=== PATIENT | male | born 1980 | race African-American/Black ===

== ENCOUNTER 2022-10-12 11:09 | Emergency (ER) | payer OTHER ==
[~2022-10-12] VITALS: Ht 175.3 cm; Wt 82.0 kg
[2022-10-12 11:25] VITALS: O2SAT 100
[2022-10-12 16:56] LABS: INR 1.6; PARTIAL THROMBOPLASTIN TIME 36.2 sec (23.4-31.0); PROTHROMBIN TIME 16.8 sec (9.6-11.0)
[2022-10-12] MEDS ORDERED: WARFARIN SODIUM 7.5MG TABLET PO ONE (17:15)
[2022-10-12] MEDS ORDERED: WARFARIN SODIUM 4MG TABLET PO NR (18:00)
[2022-10-12] MEDS ORDERED: WARF4TAB71 MT (18:17)
[2022-10-12] MEDS ORDERED: WARF7.5T48 MT (18:17)
[2022-10-12 18:33] VITALS: BP 113/64; PULSE 64; RESP 19; TEMP 97.8
== END 2022-10-12 18:35 | disposition home or self-care (01) ==
LOC: ER 11:22
DX: Z76.0 Encounter for issue of repeat prescription (principal)
CPT/HCPCS: 36415; 99283

== ENCOUNTER 2024-01-29 12:06 | Emergency (ER) | payer OTHER ==
[~2024-01-29] VITALS: Ht 175.3 cm; Wt 81.2 kg
[~2024-01-29 12:06] MED LIST: WARF4TAB71 MT; WARF7.5T48 MT
[2024-01-29 12:19] VITALS: BP 112/62; PULSE 88; RESP 16; TEMP 98; O2SAT 98
[2024-01-29 14:01] LABS: BASOPHILS % 0.5 % (0.0-2.0); EOSINOPHILS % 1.3 % (0.0-5.0); HEMATOCRIT. 48.1 % (42.0-52.0); HEMOGLOBIN. 15.9 g/dL (14.0-18.0); LYMPHOCYTES % 15.5 % (20.0-50.0); MEAN CORPUSCULAR HEMOGLOBIN 30.7 pg (28.0-32.0); MEAN PLATELET VOLUME 8.2 fl (7.4-10.4); MONOCYTES % 10.2 % (2.0-8.0); NEUTROPHILS % 72.5 % (40.0-76.0); PLATELET 185 x1000/uL (130-400); RED BLOOD CELL COUNT 5.17 mill/uL (4.7-6.1); RED CELL DISTRIBUTION WIDTH 14.1 % (11.6-14.6); WHITE BLOOD COUNT 6.7 x1000/uL (4.5-11.0)
[2024-01-29 14:08] LABS: CHLORIDE 111 mEq/L (98-107); POTASSIUM 4.1 mEq/L (3.5-5.1); SODIUM 142 mEq/L (136-145)
[2024-01-29 14:09] LABS: CARBON DIOXIDE 26 mEq/L (21-32)
[2024-01-29 14:10] LABS: CALCIUM 9.4 mg/dL (8.7-10.4)
[2024-01-29 14:14] LABS: GLUCOSE 113 mg/dL (70-105); UREA NITROGEN BLOOD 9 mg/dL (9-23)
[2024-01-29 14:27] LABS: TROPONIN I HIGH SENSITIVITY < 4 ng/L (3.0-53)
== END 2024-01-29 12:26 ==
LOC: ER 12:06
DX: Z53.21 Procedure and treatment not carried out due to patient leaving prior to being seen by health care provider (principal); I49.9 Cardiac arrhythmia, unspecified
CPT/HCPCS: 36415; 71045; 80048; 84484; 85025; 93005